=== PATIENT | female | born 1940 | race Caucasian/White ===

== ENCOUNTER → 2023-08-20 10:07 | Outpatient (REF) | payer BC, SELFPAY | LOC: RAD 10:07 | PROVIDERS: ATTENDING PHYSICIAN Obstetrics & Gynecology; FAMILY PHYSICIAN Internal Medicine; REFERRING PHYSICIAN Internal Medicine Rheumatology | DX: N95.0 Postmenopausal bleeding (principal) | CPT/HCPCS: 76830; 76856 ==

== ENCOUNTER 2023-09-18 06:45 | Day surgery (SDC) | payer BC, SELFPAY ==
[2023-09-10 09:19] VITALS: BMI 25.3
[2023-09-10 10:39] LABS: Hematocrit 39.6 % (37.0-47.0); Hemoglobin 12.4 g/dL (12.0-16.0); Mean Corp Hgb Conc. 31.3 g/dL (33.0-37.0); Mean Platelet Volume 8.9 fL (7.4-10.4); Platelet Count 279 10^3/uL (130-400); Red Blood Cell Count 4.77 10^6/uL (4.20-5.40); Red Cell Dist. Width 17.9 % (11.5-14.5)
[2023-09-10 11:11] LABS: Blood Urea Nitrogen 17 mg/dl (7-17); Calcium 9.2 mg/dl (8.4-10.2); Carbon Dioxide 26 mmol/L (22-30); Chloride 108 mmol/L (98-107); Estimated Creatinine Clearance 52 ml/min; Glucose 91 mg/dl (70-99); Potassium 4.7 mmol/L (3.5-5.1); Sodium 138 mmol/L (135-145); eGFR > 60.00
[2023-09-18] VITALS (10 sets, daily range): BP systolic 136–165; BP diastolic 40–95; BMI 24.6; BMI 25.3
[2023-09-18] MEDS: NORMOSOL-R 1000 IV (09:19)
[2023-09-18] MEDS: TYLENOL 1000 MG PO (09:30)
--- NOTE | 2023-09-18 09:51 | W.SUR.PREOP ---
Pre-Operative Surgical Note
-
I have examined this patient prior to the performance of the scheduled procedure.
The patient's condition is unchanged from the time of the current History and
Physical and the patient is able to undergo the scheduled procedure.
--- NOTE | 2023-09-18 10:52 | W.IMMPOSTOP ---
Addendum entered and electronically signed by Queta Leos DO 09/18/23 11:01:
ultrasound guidance used for procedure.
Original Note:
Surgical Immed Post Op Note
-
Primary Surgeon: Queta Leos DO
Assisting Surgeon: none
Pre-op Diagnosis: Postmenopausal bleeding, thickened endometrial lining
Post-op Diagnosis: same, endometrial polyp, submucosal fibroid
Procedure Performed: hysteroscopy D&C, polypectomy, Myosure resection of submucosal fibroid
Anesthesia Type: general LMA Dr. Cheema
Specimen / Cultures:1. endocervical curettings 2. endometrial polyp and curettings 3. resected fibroid/curettings
Estimated Blood Loss: 2ml
Complications: none
Operative Findings: Endocervical canal is normal appearance. Bilateral tubal ostia seen. Endometrial polyp noted as well as 2-3 mm submucosal fibroid.
Fluid deficit: 180ml
Counts correct times 2
Stable to recovery.
[2023-09-18] MEDS: MORPHINE SULFATE 1 MG IV (11:12)
--- NOTE | 2023-09-18 11:40 | SUR.PHASEI ---
c/o some cramping - warm blanket to abdomen; and medicated with morphine 1mg IV with relief, scant spotting, vss, Dr Leos visits and explains surgical procedure and post op instructions.
== END 2023-09-18 12:59 | disposition home or self-care (01) ==
LOC: SDS 06:45
PROVIDERS: ATTENDING PHYSICIAN Obstetrics & Gynecology; FAMILY PHYSICIAN Internal Medicine
DX: D25.0 Submucous leiomyoma of uterus (principal); N84.0 Polyp of corpus uteri; R93.89 Abnormal findings on diagnostic imaging of other specified body structures; N95.0 Postmenopausal bleeding
CPT/HCPCS: 58558; 88305; 36415; 76998; 80048; 85027; 86850; 86900; 86901; 88341; 88342

== ENCOUNTER → 2023-11-25 13:17 | Outpatient (REF) | payer BC, SELFPAY | LOC: WDC 13:17 | PROVIDERS: ATTENDING PHYSICIAN Obstetrics & Gynecology; FAMILY PHYSICIAN Internal Medicine | DX: Z12.31 Encounter for screening mammogram for malignant neoplasm of breast (principal) | CPT/HCPCS: 77063; 77067 ==

== ENCOUNTER → 2024-06-01 13:39 | Outpatient (REF) | payer BC, SELFPAY | LOC: HWRAD 13:39 | PROVIDERS: ATTENDING PHYSICIAN Obstetrics & Gynecology; FAMILY PHYSICIAN Internal Medicine | DX: N95.0 Postmenopausal bleeding (principal) | CPT/HCPCS: 76830; 76856 ==

== ENCOUNTER 2024-08-10 06:23 | Day surgery (SDC) | payer BC, SELFPAY ==
[2024-08-04 11:21] LABS: % Basophils 0.4 % (0-2); % Eosinophils 0.9 % (0-6); % Immature Granulocytes 0.4 % (0-0.5); % Lymphocytes 34.7 % (20.5-51.1); % Monocytes 9.3 % (1.7-9.3); % Neutrophils 54.3 % (42.2-75.2); Absolute Basophils 0.1 10^3/uL (0-0.2); Absolute Eosinophils 0.1 10^3/uL (0-0.7); Absolute Immature Granulocytes 0.1 10^3/uL (0-0.05); Absolute Lymphocytes 4.8 10^3/uL (1.2-3.4); Absolute Monocytes 1.3 10^3/uL (0.1-0.6); Absolute Neutrophils 7.5 10^3/uL (1.4-6.5); Hematocrit 41.8 % (37.0-47.0); Hemoglobin 12.8 g/dL (12.0-16.0); Mean Corp Hgb Conc. 30.6 g/dL (33.0-37.0); Mean Corpuscular Hgb 24.1 pg (27.0-31.0); Mean Corpuscular Volume 78.6 fL (81.0-99.0); Mean Platelet Volume 8.8 fL (7.4-10.4); Nucleated Red Blood Cells % 0 %; Platelet Count 316 10^3/uL (130-400); Red Blood Cell Count 5.32 10^6/uL (4.20-5.40); Red Cell Dist. Width 14.7 % (11.5-14.5); White Blood Cell Count 13.8 10^3/uL (4.8-10.8)
[2024-08-04 12:12] LABS: Blood Urea Nitrogen 18 mg/dl (7-17); Calcium 9.9 mg/dl (8.4-10.2); Carbon Dioxide 30 mmol/L (22-30); Chloride 101 mmol/L (98-107); Glucose 97 mg/dl (70-99); Potassium 4.3 mmol/L (3.5-5.1); Sodium 139 mmol/L (135-145); eGFR > 60.00
[2024-08-04 13:46] VITALS: BMI 24.4
--- NOTE | 2024-08-04 14:46 | PTCARENOTE ---
Patients 3 ECG abnormal, reviewed by Dr. Nguyen- no additional interventions required.
[2024-08-10] VITALS (7 sets, daily range): BP systolic 121–152; BP diastolic 44–86; BMI 24.4
[2024-08-10] MEDS: TYLENOL 1000 MG PO (08:12)
[2024-08-10] MEDS: NORMOSOL-R/PLASMALYTE-A 1000 IV (08:12)
--- NOTE | 2024-08-10 09:09 | W.IMMPOSTOP ---
Surgical Immed Post Op Note
-
Primary Surgeon: Queta Leos DO
Assisting Surgeon: n/a
Pre-op Diagnosis: Postmenopausal bleeding
Post-op Diagnosis: postmenopausal bleeding, small endometrial mass-suspected tiny fibroid
Procedure Performed: hysterosocopy D&C excision of suspected submucosal fibroid
Anesthesia Type: general LMA Dr. Alvarez
Specimen / Cultures: 1. endocervical curettings 2. endometrial curettings
Estimated Blood Loss: 2ml
Fluid deficit: 35ml NSS
Complications: none
Operative Findings: Uterus sounds to 6cm, smooth endometrial lining except small tuft of fibrous tissue at posterior fundus, approx 3mm, firm-suspected submucosal fibroid.
Lesion excised on curettage. Bilateral tubal ostia seen. Large stage 3 rectocele with some mucosal abrasion-no bleeding. Small urethral caruncle.
Counts correct times 2.
Stable to recovery.
== END 2024-08-10 11:10 | disposition home or self-care (01) ==
LOC: SDS 06:23
PROVIDERS: ATTENDING PHYSICIAN Obstetrics & Gynecology; FAMILY PHYSICIAN Internal Medicine
DX: D25.0 Submucous leiomyoma of uterus (principal); N95.0 Postmenopausal bleeding
CPT/HCPCS: 58561; 88305; 36415; 80048; 85025; 86850; 86900; 86901; 93005

== ENCOUNTER → 2024-09-27 14:37 | Outpatient (REF) | payer BC, SELFPAY | LOC: MRI 3T 14:37 | PROVIDERS: ATTENDING PHYSICIAN Obstetrics & Gynecology; FAMILY PHYSICIAN Internal Medicine | DX: N95.0 Postmenopausal bleeding (principal) | CPT/HCPCS: 72197; A9575 ==

== ENCOUNTER → 2024-12-08 10:50 | Outpatient (REF) | payer BC, SELFPAY | LOC: PET 10:50 | PROVIDERS: ATTENDING PHYSICIAN Obstetrics & Gynecology Gynecologic Oncology | DX: C43.9 Malignant melanoma of skin, unspecified (principal) | CPT/HCPCS: 78816; A9552 ==